=== PATIENT | female | born 1945 | race Caucasian/White ===

== ENCOUNTER → 2016-07-20 | Outpatient (CLI) | payer OTHER ==
[~2016-07-20] MED LIST: GADAVIST IV PRN
[2016-07-20 16:17] LABS: BASO % 0.6 %; BASO ABS # 0.07 K/uL (0-0.2); COMPLETE YES; EOS % 2.4 %; HEMATOCRIT 45.7 % (37-47); IG% 0.2 %; LYMPH % 40.1 %; MEAN CORPUSCULAR HEMOGLOBIN 33.4 pg (25-34); MEAN CORPUSCULAR HGB CONC 34.8 g/dl (32-36); MEAN PLATELET VOLUME 9.4 fL (7.4-10.4); NEUT % 43.7 %; PLATELET COUNT 352 K/uL (130-400); RED BLOOD COUNT 4.76 M/uL (4.2-5.4); WHITE BLOOD COUNT 10.96 K/uL (4.8-10.8)
[2016-07-20 16:23] LABS: INR 2.3 (0.9-1.1); PROTHROMBIN TIME (PATIENT) 25.8 SECONDS (9.0-12.0)
[2016-07-20 16:35] LABS: ALT/SGPT 41 U/L (12-78); AST/SGOT 45 U/L (15-37); BLOOD UREA NITROGEN 18 mg/dl (7-18); BUN/CREATININE RATIO 16.1 (10-20); CALCIUM 8.9 mg/dl (8.5-10.1); CARBON DIOXIDE 26 mmol/L (21-32); CHLORIDE 105 mmol/L (98-107); GLUCOSE 102 mg/dl (70-99); POTASSIUM 3.7 mmol/L (3.5-5.1); SODIUM 140 mmol/L (136-145)
[2016-07-20 16:45] LABS: ALB/GLOB RATIO 0.7 (0.9-2); ALKALINE PHOSPHATASE 136 U/L (45-117)
--- NOTE | 2016-07-20 18:36 | DIAGNOSTIC IMAGING REPORT ---
MRI OF THE BRAIN COMBO; MRI OF THE ORBITS COMBO CLINICAL HISTORY: Right sided visual loss. COMPARISON STUDY: No priors. TECHNIQUE: MRI of the brain was performed utilizing various T1 and T2-weighted sequences in the axial, sagittal, and coronal planes. Contrast-enhanced sequences were acquired following the administration of 7.9 cc of Gadavist. MRI of the brain was performed utilizing the multiple sclerosis protocol. Additional high-resolution imaging was performed through the bony orbits both pre and postcontrast. FINDINGS: Brain parenchyma: [id number] patchy foci of T2 signal abnormality within the subcortical and periventricular white matter are typical appearance for microangiopathic disease. There is no hemorrhage or mass effect. There is no restricted diffusion to suggest acute ischemia. There is a 5 mm round peripherally enhancing nodule in the left occipital lobe best seen on coronal T1 postcontrast image #26 of 28. There is also T2 signal abnormality within the left occipital cortex only seen on the high-resolution FLAIR imaging (#116 of the axial series and #185 of the coronal series). A 4 mm similar-appearing lesion is identified in the peripheral right temporal lobe cortex. This is best seen on high-resolution coronal postcontrast image #25. Strange-white matter differentiation is preserved. No extra-axial fluid collection is seen. The cerebellar tonsils are normal in configuration. Ventricles, sulci, and cisterns: Prominent secondary to involutional change. Pituitary and sella: Unremarkable. Intracranial vasculature: Normal flow voids are maintained at the skull base. Orbits: The bony orbits are grossly intact. Orbital contents are normal in appearance. There is no abnormal signal or enhancement seen involving the optic nerves. The extraocular muscles are normal and symmetric. No intra or extraconal mass lesion is seen. Sinuses and mastoids: Clear. Calvarium: Unremarkable. Cervical cord: Partially visualized cervical spinal cord is normal in morphology and signal intensity. IMPRESSION: 1. There is a 5 mm peripherally enhancing nodule identified in the left occipital lobe with surrounding T2 signal abnormality. A similar-appearing 4 mm enhancing nodule is seen in the right temporal lobe cortex. The appearance is nonspecific, and differential considerations include neoplasm/metastatic disease or an infectious etiology such as neurocysticercosis. Demyelination is considered unlikely as these lesions are cortical-based. 2. There is no hemorrhage or evidence of acute ischemia. 3. Unremarkable MRI assessment of the orbits. 4. There are [id number] patchy foci of T2 signal in amount is seen within the subcortical and periventricular white matter. 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 Clinical correlation will be required. Electronically signed by: Ramiro Walker M.D. 07/20/2016 6:35 PM Dictated Date/Time: 07/20/2016 6:13 PM
[2016-07-22 23:34] LABS: ALBUMIN 4.1 G/DL (3.8-4.8); FREE KAPPA 37.9 MG/L (3.3-19.4); FREE KAPPA/LAMBDA RATIO 1.49 (0.26-1.65); FREE LAMBDA 25.5 MG/L (5.7-26.3); IMMUNOFIXATION IGA SERUM 675 MG/DL (81-463); IMMUNOFIXATION IGG SERUM 2062 MG/DL (694-1618); IMMUNOFIXATION IGM SERUM 258 MG/DL (48-271); LUPUS ANTICOAGULANT** TC36573X Negative (Negative); TOTAL PROTEIN 8.5 G/DL (6.2-8.3)
== END | disposition home or self-care (01) ==
LOC: C.MRI 15:54
DX: D89.2 Hypergammaglobulinemia, unspecified (principal); H47.011 Ischemic optic neuropathy, right eye